=== PATIENT | male | born 1975 | race Caucasian/White ===

== ENCOUNTER → 2018-11-18 | Outpatient (CLI) | payer BC ==
--- NOTE | 2018-11-18 23:20 | NUR ---
Medical Conditions/Diagnosis: (Continued) Polycythemia Thrombophilia Back Pain Migraines Nausea PE/DVT Hearing Loss Addendum: 11/19/18 at 0129 by STEPHANE ALVA RT Amended: Links added.
--- NOTE | 2018-11-19 06:25 | NUR ---
Additional comments: Sticky residue (from head electrode) on pillow made it difficult to find a position to go to sleep. Addendum: 11/19/18 at 06 by STEPHANE ALVA RT Amended: Links added.
== END | disposition home or self-care (01) ==
LOC: SLP 20:13
PROVIDERS: ATTEND Internal Medicine
DX: G47.33 Obstructive sleep apnea (adult) (pediatric) (principal); R06.83 Snoring
CPT/HCPCS: 95810